=== PATIENT | female | born 1985 | race Caucasian/White ===

== ENCOUNTER 2017-06-03 14:58 | Emergency (ER) | payer OTHER ==
[~2017-06-03] VITALS: Ht 152.4 cm; Wt 80.0 kg
[~2017-06-03 14:58] MED LIST: ALBUTEROL
[2017-06-03 15:00] VITALS: Ht 152.4 cm; Wt 80.0 kg
[2017-06-03] MEDS ORDERED: KETOROLAC 30 MG INJ IV STA (16:44)
[2017-06-03] MEDS ORDERED: SOD CHLORIDE 0.9% 1,000 ML IV STA (16:44)
[2017-06-03] MEDS ORDERED: METOCLOPRAMIDE 10 MG INJ IV STA (16:44)
[2017-06-03] MEDS ORDERED: DIPHENHYDRAMINE 50 MG INJ IV STA (16:44)
[2017-06-03] MEDS ORDERED: HYDR-906 PO (17:06)
--- NOTE | 2017-06-03 17:20 | ERD ---
ER Documentation Chief Complaint Date/Time DATE: 06/03/17 TIME: 17:17 Chief Complaint headache this morning, took norco at 0400 HPI Patient is a 31-year-old female with past medical history of hepatitis C and migraines who presents to the ED with headache on and off for the last week. She states that her headache is exactly what she has experienced in the past. She states that she has had these headaches on and off since she was 14 years old. She denies any trauma. She denies any new injury. She does not state that this is the worst headache of her life. She usually takes Wilton's for her pain. She states that she took her friend's Wilton about 4 hours ago which helped with her pain. She complains of photophobia. She states that the pain is on the right side of her head. She denies neck pain or blurry vision. She denies chest pain or cough or shortness of breath. Denies abdominal pain, nausea, vomiting or diarrhea. She states that she needs a primary care doctor and has not followed up with a neurologist. She denies seizures or rashes. No other complaints per ROS All systems reviewed and are negative except as per history of present illness. Medications Home Meds Active Scripts Hydrocodone/Acetaminophen ([place] 5-325 Tablet) 1 Each Tablet, 1 TAB PO Q6H Y for PAIN, #5 TAB Prov:NARGIS HAWLEY PA-C 06/03/17 Reported Medications [Albuterol] No Conflict Check 03/06/10 Allergies Allergies: Coded Allergies: Amoxicillin (Verified Allergy, Unknown, 03/06/10) PMhx/Soc History of Surgery: No Anesthesia Reaction: No Hx Neurological Disorder: Yes (migraine) Hx Respiratory Disorders: Yes (ASTHMA) Hx Cardiac Disorders: No Hx Psychiatric Problems: No Hx Miscellaneous Medical Probl: Yes (GALLSTONES, hepatitis C) Hx Alcohol Use: No Hx Substance Use: No Hx Tobacco Use: Yes (1 pk/day) Smoking Status: Former smoker FmHx Family History: No coronary disease, No diabetes, No other Physical Exam Vitals Vital Signs Date Time Temp Pulse Resp B/P Pulse Ox O2 Delivery O2 Flow Rate FiO2 06/03/17 15:00 98.4 81 16 121/74 99 Physical Exam GENERAL: Well-developed, well-nourished female. Appears in no acute distress. HEAD: Normocephalic, atraumatic. EYES: Pupils are equally reactive bilaterally. EOMs grossly intact. No conjunctival erythema. ENT: Moist mucous membranes. No uvula deviation. No kissing tonsils. No exudates. NECK: Supple. No lymphadenopathy or thyromegaly. No meningismus. negative kernig. negative brudinski. LUNG: Clear to auscultation bilaterally. No rhonchi, wheezing, rales or coarse breath sounds. HEART: Regular rate and rhythm. No murmurs, rubs or gallops. ABDOMEN: No scars, ecchymosis or rashes noted. Soft, nontender, and nondistended. Positive bowel sounds in all four quadrants. No rebound tenderness , no guarding. (-) McBurneys point tenderness. No CVA tenderness. BACK: No midline tenderness. Extremities: Equal pulses bilaterally. No peripheral clubbing, cyanosis or edema. No unilateral leg swelling. NEUROLOGIC: Alert and oriented. Moving all four extremities. 5/5 strength in all extremities. Normal speech. Steady gait. Renal nerves II through XII intact. No ataxia. Negative Romberg test. SKIN: Normal color. Warm and dry. No rashes or lesions. Capillary refill < 2 seconds Results 24 hrs Current Medications Medications (Trade) Dose Ordered Sig/Fili Route PRN Reason Start Time Stop Time Status Last Admin Dose Admin Sodium Chloride (NS) 1,000 ml @ 1,000 mls/hr Q1H STAT IV 06/03/17 16:44 06/03/17 17:43 Metoclopramide HCl (Reglan) 10 mg ONCE STAT IV 06/03/17 16:44 06/03/17 16:46 DC Ketorolac Tromethamine (Toradol) 30 mg ONCE STAT IV 06/03/17 16:44 06/03/17 16:46 DC Diphenhydramine HCl (Benadryl) 25 mg ONCE STAT IV 06/03/17 16:44 06/03/17 16:46 DC Procedures/MDM ER COURSE: I kept the patient and/or family informed of laboratory and diagnostic imaging results throughout the emergency room course. MEDICAL DECISION MAKING: This is a 31-year-old female with a past medical history of migraines who presents with headache on and off x 1 week. Vital signs were reviewed. Patient is afebrile. Patient is not hypoxic. She is nontoxic or ill-appearing. Patient 's neuro exam was within normal limits. I offered patient migraine cocktail of fluids, IV, Benadryl, Reglan and Toradol, however patient did not want to wait for 1 hour and stated that she just wanted a prescription for Wilton. Patient stated that she has usually taking Wilton for her symptoms. Low suspicion for intracranial hemorrhage, meningitis, intracranial mass, concussion, temporal arteritis, stroke, elevated intracranial pressure, seizure. I reviewed patient' s CURES report and patient had received 20 Wilton in March. No other recent prescriptions, therefore I have low suspicion for drug abuse. DISCHARGE: At this time, patient is stable for discharge and outpatient management with no new complaints during the ER course. Patient was sent home with Wilton and to follow-up with neurologist for further evaluation. Names of primary care plan clinics were given to patient to follow-up regarding her hepatitis C.. Patient will be discharged home with instructions to recheck for new or worsening symptoms such as fever, nausea, weakness, LOC and to follow up with primary care in the next 1-2 days. Patient was advised to return to the ER for any new or worsening symptoms. Plan was discussed and patient and/or family understands and agrees. Home instructions were given. Departure Diagnosis: Primary Impression: Headache Headache type: unspecified Headache chronicity pattern: acute headache Intractability: not intractable Qualified Code: R51 - Acute nonintractable headache, unspecified headache type Condition: Stable Patient Instructions: Self-Care for Headaches Referrals: [facility]DRA [facility] MD, JAMES MILLER, CHAD M. MD [facility] YOU HAVE RECEIVED A MEDICAL SCREENING EXAM AND THE RESULTS INDICATE THAT YOU DO NOT HAVE A CONDITION THAT REQUIRES URGENT TREATMENT IN THE EMERGENCY DEPARTMENT. FURTHER EVALUATION AND TREATMENT OF YOUR CONDITION CAN WAIT UNTIL YOU ARE SEEN IN YOUR DOCTORS OFFICE WITHIN THE NEXT 1-2 DAYS. IT IS YOUR RESPONSIBILITY TO MAKE AN APPOINTMENT FOR FOLOW-UP CARE. IF YOU HAVE A PRIMARY DOCTOR --you should call your primary doctor and schedule an appointment IF YOU DO NOT HAVE A PRIMARY DOCTOR YOU CAN CALL OUR PHYSICIAN REFERRAL HOTLINE AT IF YOU CAN NOT AFFORD TO SEE A PHYSICIAN YOU CAN CHOSE FROM THE FOLLOWING [facility] [address] [facility] [address] [facility] [address] [facility] [address] [facility] [address] [facility]. [facility] [address] Additional Instructions: Call your primary care doctor TOMORROW for an appointment during the next 1-2 days.See the doctor sooner or return here if your condition worsens before your appointment time. NARGIS HAWLEY PA-C Jun 03, 2017 17:20
== END 2017-06-03 17:30 | disposition home or self-care (01) ==
LOC: FTE 14:58
DX: R51 Headache (principal); J45.909 Unspecified asthma, uncomplicated; Z87.891 Personal history of nicotine dependence
CPT/HCPCS: 99283; J7030

== ENCOUNTER 2017-08-13 19:44 | Emergency (ER) | payer OTHER ==
[~2017-08-13] VITALS: Ht 152.4 cm; Wt 81.5 kg
[~2017-08-13 19:44] MED LIST changes: +HYDR-906 PO
[2017-08-13 19:50] VITALS: Ht 152.4 cm; Wt 81.5 kg
[2017-08-13] MEDS ORDERED: KETOROLAC 30 MG INJ IM STA (22:10)
[2017-08-13] MEDS ORDERED: METOCLOPRAMIDE 10 MG INJ IM ONE (22:30)
[2017-08-13] MEDS ORDERED: FAMOTIDINE 20 MG TAB PO ONE (22:30)
[2017-08-13] MEDS ORDERED: SUMA25TA3 PO (22:58)
--- NOTE | 2017-08-13 23:06 | ERD ---
ER Documentation Chief Complaint Chief Complaint medication refill HPI 32-year-old female presents with a chief complaints of headache. Patient has a history of chronic migraines. Headache was relieved with [place]. The pain is currently scored as 2 out of 10. Denies fever, worst headache of life, thunderclap headache, meningismus, temporal pain, eye pain, aura, change in vision, or new medications. Requesting [place] refill. The nursing notes have been reviewed and are consistent with the obtained history. ROS All systems reviewed and are negative except as per history of present illness. Medications Home Meds Active Scripts Sumatriptan Succinate* (Sumatriptan Succinate*) 25 Mg Tablet, 25 MG PO BID Y for MIGRAINE HEADACHE for 7 Days, TAB May repeat after 2 hours if needed; MAX 200 mg/24 hours Prov:FREDERICK KENNEDY PA-C 08/13/17 Hydrocodone/Acetaminophen ([place] 5-325 Tablet) 1 Each Tablet, 1 TAB PO Q6H Y for PAIN, #5 TAB Prov:NARGIS HAWLEY PA-C 06/03/17 Reported Medications [Albuterol] No Conflict Check 03/06/10 Allergies Allergies: Coded Allergies: amoxicillin (Verified Allergy, Unknown, 08/13/17) PMhx/Soc History of Surgery: No (gallstone removal) Anesthesia Reaction: No Hx Neurological Disorder: Yes (migraine) Hx Respiratory Disorders: Yes (ASTHMA) Hx Cardiac Disorders: No Hx Psychiatric Problems: No Hx Miscellaneous Medical Probl: Yes (GALLSTONES, hepatitis C) Hx Alcohol Use: No Hx Substance Use: No Hx Tobacco Use: Yes (1 pk/day) Smoking Status: Never smoker Physical Exam Vitals Vital Signs Date Time Temp Pulse Resp B/P Pulse Ox O2 Delivery O2 Flow Rate FiO2 08/13/17 19:50 99.0 95 20 129/74 99 Physical Exam Const: Overweight. No acute distress. Head: Normocephalic, Atraumatic. Eyes: Non-injected; No discharge or foreign body. Ophthalmoscope exam unremarkable. EOMI and VENANCIO bilaterally. No nystagmus. Neur: Awake, alert and oriented x3. Neurovascularly intact bilaterally. Psych: Normal Mood and Affect. Ears: Normal External Ears, EACs clear, TM normal bilaterally without erythema. Nose: Normal external nose; no discharge, septal deviation, or sinus tenderness. Oral: No oral edema visualized. Mucous membranes moist and pink. Neck: No cervical lymphadenopathy, masses or goiter palpated. Trachea midline. Full range of motion. Supple ~ No meningismus. Negative kernings and brudnizkis signs. Pulm: Good air movement in upper and lower respiratory tracts. No dyspnea, stridor, tripoding or drooling. Clear to auscultation bilaterally. Cardio: Regular rate and rhythm; No murmurs, gallops or rubs auscultated. No JVD grossly observed. Radial and posterior tibial pulses 2+ bilaterally. No cyanosis. Capillary refill less than 2 seconds. Abd: Soft, non tender, non distended. No guarding, masses. Normal bowel sounds. No McBurney's point tenderness. MS: Normal motor strength, normal tone with gross examination. Skin: No petechiae or rashes. No ulcer, induration, jaundice. Good turgor. Back: No midline, flank or CVA tenderness. Ext: No edema or palpable cord. Normal movement of all extremities grossly observed. Results 24 hrs Current Medications Medications (Trade) Dose Ordered Sig/Fili Route PRN Reason Start Time Stop Time Status Last Admin Dose Admin Metoclopramide HCl (Reglan) 10 mg ONCE ONCE IM 08/13/17 22:30 08/13/17 22:31 DC 08/13/17 22:36 Ketorolac Tromethamine (Toradol) 30 mg ONCE STAT IM 08/13/17 22:10 08/13/17 22:12 DC 08/13/17 22:36 Famotidine (Pepcid) 20 mg ONCE ONCE PO 08/13/17 22:30 08/13/17 22:31 DC 08/13/17 22:35 Procedures/MDM Patient was worked up and evaluated for headache as described in the history and physical examination. Patient was given 30 mg Toradol IM, Reglan 20 mg IM, Pepcid p.o. There are no red flags to support brain CT evaluation. The current most likely diagnosis is tension-type headache versus common migraine. Patient will be discharged with Imitrex 7 days with instructions to follow-up with PCP. At this time, I have little suspicion for subarachnoid hemorrhage meningitis, temporal arteritis, glaucoma, cerebral ischemia, arterial dissection, brain abscess/tumor, pain secondary to trauma, or other intracranial bleeds. I have spoke with the patient regarding their condition and future management. They have verbally responded that they understand their status and treatment plan. The patients vitals are stable, and their current condition is appropriate for discharge. The patient will be given discharge instructions with return precautions. Departure Diagnosis: Primary Impression: Migraine Migraine type: without aura Status migrainosus presence: without status migrainosus Intractability: intractable Qualified Code: G43.019 - Intractable migraine without aura and without status migrainosus Condition: Stable Additional Instructions: Follow up with your PCP within the next 1-3 days for a more thorough evaluation and a possible referral to a specialist. Return the the emergency department immediately if symptoms worsen or change. If you have any questions regarding medications, ask your pharmacist or us before you leave. If any adverse reactions occur while taking your medications, discontinue the treatment and return to the emergency department immediately. Take your medications as directed, and complete the entire course of treatment. FREDERICK KENNEDY PA-C Aug 13, 2017 23:06
== END 2017-08-13 23:03 | disposition home or self-care (01) ==
LOC: FTE 19:44
DX: G43.019 Migraine without aura, intractable, without status migrainosus (principal); J45.909 Unspecified asthma, uncomplicated; Z87.891 Personal history of nicotine dependence
CPT/HCPCS: 96372; J1885; J2765; Z7502; Z7610

== ENCOUNTER 2018-06-03 22:48 | Emergency (ER) | END 2018-06-04 00:24 | disposition home or self-care (01) ==